=== PATIENT | male | born 1985 | race Caucasian/White ===

== ENCOUNTER 2021-07-08 13:57 | Emergency (ER) | payer MEDICAID ==
[~2021-07-08] VITALS: Ht 172.7 cm; Wt 75.0 kg
[2021-07-08] MEDS ORDERED: BACITRACIN ZINC OINT UDPKT TOP ONE (14:30)
[2021-07-08] MEDS ORDERED: LIDOCAINE HCL/PF 1% 10 MG/ML 5ML VIAL INFIL ONE (14:30)
[2021-07-08] MEDS ORDERED: TETANUS, DIPHTHERIA, PERTUSSIS VAC/PF 0.5ML (>10YR OLD) IM ONE (14:30)
[2021-07-08] MEDS ORDERED: HYDROCODONE/ACETAMINOPHEN 5/325MG TABLET PO ONE (14:45)
[2021-07-08] MEDS ORDERED: LIDOCAINE HCL 1% 10 MG/ML 10ML VIAL INJ NR (15:30)
[2021-07-08] MEDS ORDERED: HYDR-4001 PO (16:46)
[2021-07-08 17:22] VITALS: BP 135/89
== END 2021-07-08 17:24 | disposition home or self-care (01) ==
LOC: ER 14:23
DX: S01.511A Laceration without foreign body of lip, initial encounter (principal); S10.83XA Contusion of other specified part of neck, initial encounter; S00.83XA Contusion of other part of head, initial encounter; Y08.09XA Assault by strike by other specified type of sport equipment, initial encounter; Y93.89 Activity, other specified; Y92.488 Other paved roadways as the place of occurrence of the external cause
CPT/HCPCS: 12013; 90471; 90715; 99283; J3490; Z7610

== ENCOUNTER 2021-07-15 09:34 | Emergency (ER) | payer MEDICAID ==
[~2021-07-15] VITALS: Ht 172.7 cm; Wt 77.0 kg
[~2021-07-15 09:34] MED LIST: HYDR-4001 PO
[2021-07-15 09:39] VITALS: BP 140/92
== END 2021-07-15 11:21 | disposition home or self-care (01) ==
LOC: ER 09:34
DX: Z48.02 Encounter for removal of sutures (principal)
CPT/HCPCS: 99281